=== PATIENT | female | born 1955 | race Caucasian/White ===

== ENCOUNTER 2016-11-25 09:31 | Emergency (ER) | payer OTHER ==
[~2016-11-25] VITALS: Ht 167.6 cm; Wt 99.8 kg
[2016-11-25] MEDS ORDERED: IBUPROFEN600 M1 PO (11:01)
[2016-11-25] MEDS ORDERED: PERCOCET 5-3251 EACH PO (11:01)
--- NOTE | 2016-11-25 11:03 | ED ANKLE/FOOT INJURY COMPLAINT ---
History of Present Illness General Chief Complaint: Foot or Ankle Injury Stated Complaint: LFT ANKLE PAIN Source: patient, family, old records Exam Limitations: no limitations Vital Signs & Intake/Output Vital Signs & Intake/Output Vital Signs Date Time Temp Pulse Resp B/P Pulse O2 O2 Flow FiO2 Ox Delivery Rate 11/25 0938 98.3 73 18 172/99 100 Room Air Allergies Coded Allergies: No Known Drug Allergies (11/25/16) Reconcile Medications Ibuprofen 600 MG TABLET 1 TAB PO Q6PRN PRN pain with food Oxycodone HCl/Acetaminophen (Percocet 5-325 MG Tablet) 5 MG-325 MG TABLET 1 TAB PO Q6P PRN severe pain Triage Note: C/O PAIN IN RIGHT ANKLE WITH SWELLING, AND NUMBNESS S/P FALL ON ICE THIS AM, UNABLE TO BEAR WEIGHT. Triage Nurses Notes Reviewed? yes Occurred: just prior to arrival Duration: minute(s):, constant, continues in ED Timing: recent history Severity: severe Pain/Injury Location: Right: Ankle. Method of Injury: fall Modifying Factors: Improves With: immobilization. Worsens With: jarring, movement. Associated Symptoms: swelling, GCS 15 since, stiffness LMP (ages 10-50): post menopausal : No Patient currently breastfeeds: No HPI: Prior to admission patient slipped on the ice twisting her right ankle unable to bear weight. Complains of numbness severe pain with weight bearing limited range of motion with swelling. She denies fever chills nausea vomiting diarrhea abdominal pain chest pain shortness breath headache dysuria other injury head strike. Past History Travel History Traveled to [place] past 21 day No Medical History Any Pertinent Medical History? see below for history Cancer(s): BASAL AND SQUAMOUS CELL Surgical History Surgical History: non-contributory Psychosocial History What is your primary language Sinhala Tobacco Use: Never used ETOH Use: denies use Family History Hx Contributory? No Review of Systems Review of Systems Constitutional: Reports: no symptoms. EENTM: Reports: no symptoms. Respiratory: Reports: no symptoms. Cardiovascular: Reports: no symptoms. GI: Reports: no symptoms. Genitourinary: Reports: no symptoms. Musculoskeletal: Reports: see HPI, joint pain, joint swelling. Skin: Reports: no symptoms. Neurological/Psychological: Reports: no symptoms. Hematologic/Endocrine: Reports: no symptoms. Immunologic/Allergic: Reports: no symptoms. All Other Systems: Reviewed and Negative Physical Exam Physical Exam General Appearance: well developed/nourished, alert, awake, anxious, moderate distress, obese Head: atraumatic, normal appearance Eyes: Bilateral: normal appearance, PERRL, EOMI. Ears, Nose, Throat: normal pharynx, normal ENT inspection, hearing grossly normal, moist mucus membranes Neck: normal inspection, supple, full range of motion, no midline tenderness Cardiovascular/Respiratory: normal breath sounds, normal peripheral pulses, regular rate/rhythm, no respiratory distress Back: normal inspection Leg/Knee/Thigh Left: normal range of motion, normal inspection Leg/Knee/Thigh Right: normal range of motion, normal inspection Ankle Left: normal inspection, normal range of motion Ankle Right: bone tenderness, deformity, evidence of injury, ligamentous instability, pain bimalleolar compress, soft tissue tenderness, swelling, tenderness, limited range of motion, abrasion medial malleolus Foot Left: normal inspection, normal range of motion Foot Right: normal inspection, normal range of motion Reflexes: 2+: knee (R), knee (L). Neuro/Vascular: normal motor function, normal sensation, abnormal cap refill Tendon: injury seen Psychiatric: awake, alert, oriented x 3 Skin: normal color, warm/dry Progress Differential Diagnosis: fracture, sprain, contusion Plan of Care: Orders Procedure Date/time Status Durable Medical Equipment 11/25 1103 Active Diagnostic Imaging: Viewed by Me: Radiology Read. Discussed w/RAD: Radiology Read. Radiology Impression: Fractures of the distal fibular diaphysis, medial malleolus, and lateral aspect of the tibial plafond which may involve the posterior malleolus as described above. Widening of the tibiofibular syndesmosis. Alignment of the distal tibial and fibular fracture fragments with the talus is grossly preserved. Departure Departure Time of Disposition: 1058 Disposition: HOME OR SELF CARE Condition: Stable Clinical Impression Primary Impression: Bimalleolar fracture of right ankle Qualifiers: Encounter type: initial encounter Fracture type: closed Qualified Code: S82.841A - Displaced bimalleolar fracture of right lower leg, initial encounter for closed fracture Referrals: NATHANAEL WATSON,VAHID SIERRA MD,EDU Otto Additional Instructions: No weight bearing on right leg Departure Forms: Customer Survey General Discharge Information Prescriptions: Current Visit Scripts Ibuprofen 1 TAB PO Q6PRN PRN pain #50 TAB with food Oxycodone HCl/Acetaminophen (Percocet 5-325 MG Tablet) 1 TAB PO Q6P PRN severe pain #20 TAB
--- NOTE | 2016-11-25 11:26 | RADIOLOGY REPORT ---
EXAMINATION: XR ANKLE, RIGHT CLINICAL INFORMATION: Fall, medial malleolus pain and tenderness COMPARISON: None TECHNIQUE: AP, lateral, and mortise views of the right ankle. FINDINGS: There is a minimally displaced tibial fracture through the base of the medial malleolus. There is an oblique fracture of the distal fibular diaphysis which appears mildly displaced and comminuted; inferior extent of the fracture line appears to lie above the level of the talar dome. There is cortical irregularity at the lateral aspect of the tibial plafond and with adjacent tiny osseous densities, suspicious for fracture fragments which may involve the posterior malleolus. There is widening of the distal tibiofibular syndesmosis. Alignment of the distal tibial and fibular fracture fragments with the talus appears grossly preserved. The medial clear space is not widened. Surrounding soft tissue swelling is present, most prominent medially. Posterior and plantar calcaneal spurring is noted. IMPRESSION: Fractures of the distal fibular diaphysis, medial malleolus, and lateral aspect of the tibial plafond which may involve the posterior malleolus as described above. Widening of the tibiofibular syndesmosis. Alignment of the distal tibial and fibular fracture fragments with the talus is grossly preserved.
[2016-11-25 12:00] VITALS: BP 170/86
== END 2016-11-25 12:06 ==
LOC: ERH 09:31
DX: S82.841A Displaced bimalleolar fracture of right lower leg, initial encounter for closed fracture (principal); W18.49XA Other slipping, tripping and stumbling without falling, initial encounter
CPT/HCPCS: 73610-RT